=== PATIENT | male | born 1980 | race Caucasian/White ===

== ENCOUNTER 2018-09-17 09:28 | Emergency (ER) | payer SELFPAY ==
--- NOTE | 2018-09-17 09:32 | NUR.NOTE ---
Nursing Note: pt developed yesterday with dental pain since then pain has increased 10/10 pt also has noted swelling on right side of face pain radiates to neck and eye. pt took antibiotics that a fried had sitting around yesterday for tooth however did not help hi symptoms pt does not know what the antibiotic was
[2018-09-17 09:35] VITALS: BP 129/79; PULSE 87; RESP 15; TEMP 37; O2SAT 98
--- NOTE | 2018-09-17 09:50 | W.ED.GENAD ---
Discharge Plan Disposition Patient Disposition: HOME Condition: Stable Discharge Details Chief Complaint: DentalOral Clinical Impression: Dental infection Primary Care Provider: None,None ED Provider: Talat Joya Home Meds and New Rx's Prescriptions: New amoxicillin-pot clavulanate [Augmentin] 875-125 mg tablet 1 tab PO Q12H Qty: 14 RF: 0 Discharge Instructions Instructions: Dental Abscess (ED) Additional Instructions: Please take antibiotic for the full 7 days and until all tablets are gone. For pain control you may use 600 of ibuprofen along with 1000 mg of acetaminophen every 6 hours. You should follow-up with a dental provider preferably within the next 1 to 2 weeks for definitive care of your dental infection. Return to the emergency department for any new or significant worsening of symptoms. Referrals: [facility] [Provider Group] Discharge Data Discharge Date/Time-TO BE ENTERED AT DEPARTURE: 09/17/18 11:28 Medical Decision Making Patient presenting to the emergency department for chief complaint of dental pain and facial swelling. Patient states that he has had dental abscesses before and this feels similar. He states very poor dentition and multiple fractured teeth and removed teeth from infection. Patient reports yesterday he started having significant increase in pain and discomfort to the right lower jaw and over the past 24 hours as noted swelling to his face. Patient denies any fever chills, difficulty breathing or swallowing. Physical exam shows significant tooth loss to teeth #27-28 with surrounding erythema and edema but no palpable fluctuance. Patient has no signs of Gene's angina, peritonsillar retropharyngeal abscess, or airway obstruction. Exam is otherwise unremarkable except for tenderness to the left lower jaw. Review of vital signs shows completely normal vital signs and the patient is afebrile non-tachycardic non-hypotensive. Plan to place patient on antibiotics and patient was started on Augmentin. Did discuss risk versus benefit of dental block for an inferior alveolar block and patient after discussion of risks versus benefit gave verbal consent for this procedure. 0.25% of Marcaine was injected and patient tolerated procedure well. Patient had appropriate anesthetic relief from this. Patient was observed and had no side effect. Patient placed upon Augmentin for 7-day course. Return precautions discussed. After discussion of diagnosis and plan of care patient has no further needs, questions, or concerns and states clear understanding to return to the emergency department for any worsening symptoms. HPI General Mode of arrival: ambulatory. Date/Time Provider Initiated Documentation: 09/17/18 09:29. Limitations to Documentation: no limitations. Information obtained by: patient. History of Present Illness 37 year old M presents to the emergency department with the chief complaint of Dental pain/ swelling, described as severe and similar to prior episodes, with intensity rated at 10. Quality is described as sharp, and is localized to the mouth (right lower jaw). Patient started experiencing this day(s) (1) and it has been constant. No relieving factors improve symptom(s), Patient notes no other symptoms.. Patient did receive the following treatments prior to arrival, NSAID Related Data Home Medications Medication Instructions Recorded Confirmed amoxicillin-pot clavulanate 1 tab PO Q12H #14 tab 09/17/18 [Augmentin] Previous Rx's Medication Instructions Recorded amoxicillin-pot clavulanate 1 tab PO Q12H #14 tab 09/17/18 [Augmentin] Allergies Allergy/AdvReac Type Severity Reaction Status Date / Time No Known Allergies Allergy Unverified 09/17/18 09:37 General Stated Complaint: DentalOral JESSE: 3 Review of Systems Constitutional Denies chills and Denies fever(s) ENT Reports as per HPI, Denies change in voice, Reports dental pain, Denies dysphagia, Denies throat swelling and Denies tongue swelling Cardiovascular Denies chest pain and Denies dyspnea Respiratory Denies dyspnea, Denies stridor and Denies wheezing Gastrointestinal Denies abdominal pain, Denies dysphagia, Denies nausea and Denies vomiting Integumentary/Breasts Denies rash Allergic/Immunologic Denies throat swelling, Denies tongue swelling and Denies wheezing [facility] Social History Smoking/Tobacco Use Status: Current every day Tobacco Type: cigarettes Alcohol Intake: current Alcohol Intake frequency: 0-2 drinks per day Drug use: Occasionally Substance use type: marijuana and heroin Do you feel safe at home: Yes Do you feel safe in your relationship?: Yes Exam Const General: cooperative Orientation: alert, awake and oriented x3 Limitations: mental status not altered HENMT Head: normal to inspection, normocephalic and atraumatic Ears: hearing grossly normal bilaterally, normal mastoids bilaterally and no periauricular adenopathy General nose exam: external nose normal Mouth: oropharynx normal, no drooling, no muffled voice, normal tongue and no trismus Teeth and gingiva: abnormal tooth or associated gingiva right tender (teeth #27-28), with associated gingival edema (teeth #27-28) and dentin fractured (teeth #27-28); without associated gingival fluctuance, caries, poor dentition and other Throat: posterior oropharynx normal, tonsils normal and uvula midline Eyes General: appearance normal, both eyes and all related structures Pupils: PERRL Neck Neck: normal visual inspection, full ROM, no lymphadenopathy, no meningeal signs, trachea midline, supple, no anterior neck swelling and no midline deformity Resp Effort & Inspection: normal respiratory effort and able to speak in complete sentences Course Vital Signs Temperature 37 C 09/17/18 09:35 Pulse 87 09/17/18 09:35 Respiratory Rate 15 09/17/18 09:35 Blood Pressure 129/79 09/17/18 09:35 Pulse Oximetry 98 09/17/18 09:35 Temperature 37 C 09/17/18 09:35 Temperature Source Skin 09/17/18 09:35 Pulse 87 09/17/18 09:35 Respiratory Rate 15 09/17/18 09:35 Respiratory Effort 09/17/18 09:38 Blood Pressure 129/79 09/17/18 09:35 Blood Pressure Position Sitting 09/17/18 09:35 Pulse Oximetry 98 09/17/18 09:35 Oxygen Delivery Method Room Air 09/17/18 09:35 Oxygen Flow Rate 0 09/17/18 09:35 Pain Level 10 09/17/18 09:35
[2018-09-17] MEDS: Bupivacaine 0.25% Pres-Free 10 ML VIAL IJ (10:34)
[2018-09-17] MEDS: Amoxicillin 875/Clav. 125 TAB PO (10:34)
[2018-09-17 11:15] VITALS: BP 129/79; PULSE 87; RESP 15; TEMP 37; O2SAT 98
== END 2018-09-17 11:28 | disposition home or self-care (01) ==
PROVIDERS: Emergency Provider Nurse Practitioner Family
DX: R68.84 Jaw pain (principal); K04.7 Periapical abscess without sinus; R22.0 Localized swelling, mass and lump, head
CPT/HCPCS: 64402

== ENCOUNTER 2020-06-09 23:27 | Emergency (ER) | payer MEDICAID, SELFPAY ==
--- NOTE | 2020-06-09 23:30 | DI.RAD_ITS ---
Exam(s) XR KNEE LT 3V AP,LAT,ARUN EXAM: XR KNEE LT 3V AP,LAT,ARUN CLINICAL HISTORY: pain at lateral tibial plateau and inferior patell TECHNIQUE: COMPARISON: No exams were available for comparison FINDINGS: Three views were obtained. There is a probable small knee joint effusion. There is no evidence of a cute fracture or dislocation. Note is made of enthesophyte at the quadriceps attachment on the garcia la. IMPRESSION: RADIATION DOSE DELIVERED: Total DLP
[2020-06-09 23:33] VITALS: BP 127/107; PULSE 113; RESP 22; TEMP 36.4; O2SAT 97
--- NOTE | 2020-06-09 23:33 | ED.GENADUL_ITS ---
Discharge Plan Disposition Patient Disposition: HOME Condition: Good Discharge Details Clinical Impression: Acute pain of left knee Primary Care Provider: None,None ED Provider: Giorgio Healy Home Meds and New Rx's Prescriptions: Continued amoxicillin-pot clavulanate [Augmentin] 875-125 mg tablet 1 tab PO Q12H Qty: 14 RF: 0 methadone 40 mg Tablet,Soluble 80 mg PO DAILY RF: 0 sertraline 25 mg Tablet 30 mg PO DAILY RF: 0 Discharge Instructions Instructions: Knee Pain (ED) Additional Instructions: At this time your x-ray shows no evidence of fracture. I suspect there is injury to both the ligaments in the bursa fluid sac that goes around your knee. Please keep your knee Tino wrap, use ice Tylenol and Motrin for pain. Please remain nonweightbearing for the next week, and use your crutches. You can then gradually begin bearing weight on the affected joint if tolerable. If you do not have improvement of your symptoms after the next 1 to 2 weeks you may require further or alternative imaging of your knee. If you notice any worsening of your symptoms, or any new symptoms such as vomiting, diarrhea, fever, chills, shortness of breath, chest pain, numbness, weakness, or fainting , please return immediately to the emergency department for reevaluation. Please follow up with your primary care provider as soon as possible for reassessment and reevaluation. As always, it was a pleasure participating in your medical care today. 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 Patient states that 5 days ago he stepped into a hole, but he denies twisting his knee or hitting his knee at that time. Ever since then he has had pain over his inferior patella and over the lateral aspect of the tibial plateau. It is worse when he bends the knee and is down on his knees. It is worse at the end of the day after full day of use. He has been taking Tylenol and Motrin and this does not improve his symptoms. He denies any other trauma, fever, chills, or other complaints. Physical exam demonstrates reproducible tenderness over the inferior aspect of the patella and the lateral tibial plateau albeit mild. Pain is present with varus stressing, as well as lateral pain with Ingrid's test. No redness or warmth to suggest infection. Distal pulses sensation and capillary refill are intact and unremarkable. No laxity for anterior or posterior drawer testing. Symptoms are likely secondary to meniscal or lateral collateral ligament injury. Doubt tibial plateau fracture as the patient is able to ambulate well, has been doing so for the last 5 days. Will get x-ray to rule out acute fracture though, although I suspect this to be unlikely, monitor closely and reassess. 12:38 AM X-ray results have returned from [facility], no evidence of acute fracture. There is a small suprapatellar joint fluid that is noted. Suspect ligamentous injury and bursal irritation secondary to his mechanism. Symptoms are inconsistent with significant patellar fracture or tibial plateau fracture. Will recommend crutches for the next 1 to 2 weeks, rest, ice and NSAIDs. If the patient does not have improvement he may require further radiographic imaging. Discussed red flags for which to return. I have extensively reviewed the treatment plan and discharge instructions with the patient. I have addressed all patient concerns at this time. The patient was made aware of what symptoms to monitor for that would warrant a return to the emergency department. Discussed the plan with the patient, they demonstrate verbal understanding and agreement with our assessment and plan at this time. The documentation in this chart was dictated using [employer] dictation software. Please excuse any dictation errors. FINDINGS: Bones/joints: Small suprapatellar joint fluid. Enthesophyte noted at the insertion of the quadriceps tendon at the superior patellar pole. Soft tissues: Normal. IMPRESSION: 1. Small suprapatellar joint fluid. 2. Enthesophyte noted at the insertion of the quadriceps tendon at the superior patellar pole. Thank you for allowing us to participate in the care of your patient. Dictated and Authenticated by: Krish Strong MD 06/10/2020 12:34 AM Eastern Time ([place] & [place]) HPI General Date/Time Provider Initiated Documentation: 06/09/20 23:30 . 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 Patient states that 5 days ago he stepped into a hole, but he denies twisting his knee or hitting his knee at that time. Ever since then he has had pain over his inferior patella and over the lateral aspect of the tibial plateau. It is worse when he bends the knee and is down on his knees. It is worse at the end of the day after full day of use. He has been taking Tylenol and Motrin and this does not improve his symptoms. He denies any other trauma, fever, chills, or other complaints. Related Data Home Medications Medication Instructions Recorded Confirmed amoxicillin-pot clavulanate 1 tab PO Q12H #14 tab 09/17/18 [Augmentin] methadone 80 mg PO DAILY 06/09/20 06/09/20 sertraline 30 mg PO DAILY 06/09/20 06/09/20 Previous Rx's Medication Instructions Recorded amoxicillin-pot clavulanate 1 tab PO Q12H #14 tab 09/17/18 [Augmentin] Allergies Allergy/AdvReac Type Severity Reaction Status Date / Time No Known Allergies Allergy Unverified 09/17/18 09:37 General JESSE: 3 Review of Systems All systems reviewed & are unremarkable except as noted in HPI and below PFSH Social History Smoking/Tobacco Use Status: Current every day Tobacco Type: cigarettes Smoking risk assessment performed?: Yes Alcohol Intake: current Alcohol Intake frequency: 0-2 drinks per day Alcohol type: beer Drug use: Daily Substance use type: marijuana Do you feel safe at home: Yes Do you feel safe in your relationship?: Yes Exam Narrative Exam Narrative: 1.Const: Well-nourished, Well-developed, appearing stated age 2.Eyes: PERRL, no conjunctival injection, and symmetrical lids. 3.ENT: Atraumatic external nose and ears. Moist MM. Neck: Symmetric, trachea midline, No thyromegaly. 4.CVS: +S1/S2, No murmurs or gallops. Peripheral pulses 2+ and equal in all extremities. Brisk capillary refill in all extremities. 5.RESP: Unlabored respiratory effort. Clear to auscultation bilaterally. No wheezes rales or rhonchi 6.GI: Soft, Nontender/Nondistended, No hepatosplenomegaly. No guarding or rebound. 7.MSK: Normocephalic/Atraumatic, Extremities w/o deformity. Left knee: The knee is stable to varus, valgus, and anterior drawer stress. The patient does have some pain at the location of the lateral collateral ligaments with varus stressing. No deformity. Tenderness is present on palpation over the inferior aspect of the patella and the lateral aspect of the tibial plateau albeit mild. Ingrid test is positive for pain with external rotation and the pain is over the lateral aspect of the knee.. Patient is able to walk without difficulty but does have a mild limp. No edema or warmth to the joint to suggest infection. No redness.. No ttp to the fibular head. 8.Skin: Warm, Dry. 9.Neuro: survival specialist II-XII grossly intact. Sensation grossly intact, no focal neurolo gic deficits. 10.Psych: (AAO) x3. Appropriate mood and affect
--- NOTE | 2020-06-10 00:35 | DI.VRAD_ITS ---
PROCEDURE INFORMATION: Exam: XR Left Knee Exam date and time: 06/09/2020 12:05 AM Age: 39 years old Clinical indication: Other: Pain at lateral tibial plateau and inferior patella; Patient HX: PT uncooperative and could not follow instructions, limited study TECHNIQUE: Imaging protocol: XR Left knee. Views: 3 views. COMPARISON: No relevant prior studies available. FINDINGS: Bones/joints: Small suprapatellar joint fluid. Enthesophyte noted at the insertion of the quadriceps tendon at the superior patellar pole. Soft tissues: Normal. IMPRESSION: 1. Small suprapatellar joint fluid. 2. Enthesophyte noted at the insertion of the quadriceps tendon at the superior patellar pole. Dictated and Authenticated by: Krish Strong MD. Ordering:COLLETTE Alvares MD
== END 2020-06-10 00:49 | disposition home or self-care (01) ==
PROVIDERS: Emergency Provider Student in an Organized Health Care Education/Training Program
DX: S89.82XA Other specified injuries of left lower leg, initial encounter (principal); W18.42XA Slipping, tripping and stumbling without falling due to stepping into hole or opening, initial encounter; Y99.0 Civilian activity done for income or pay
CPT/HCPCS: 73562; 99283

== ENCOUNTER 2021-06-26 08:53 | Emergency (ER) | payer MEDICAID, SELFPAY ==
[2021-06-26 09:00] VITALS: BP 143/92; PULSE 79; RESP 16; TEMP 36.1; O2SAT 99
--- NOTE | 2021-06-26 09:08 | ED.GENADUL_ITS ---
Discharge Plan Disposition Patient Disposition: HOME Condition: Improving Discharge Details Clinical Impression: Finger infection Primary Care Provider: None,None ED Provider: Dereck Ge Home Meds and New Rx's Prescriptions: Continued sertraline 25 mg tablet 50 mg PO DAILY sulfamethoxazole-trimethoprim 800-160 mg tablet 1 tab PO BID Discharge Instructions Additional Instructions: Take antibiotics as prescribed previously until they are finished. Warm water soaks 1-2 times daily. May leave current dressing on until tomorrow morning. We will refer you to orthopedics as well as to establish primary care. As discussed, please call the office at [phone] for an appointment time. Return to the ER any acute concerns. Medical Decision Making 40-year-old male presents complaining of left ring finger infection after slamming it in a car door 2 weeks ago. He developed infection at the base of the nail and was seen at an urgent care where it was incised with an 18-gauge needle and he was placed on antibiotics which she has picked up this morning. He now requests recurrent drainage for buildup of pressure and swelling overnight. Patient does have an infection at the base of the left ring finger. He was anesthetized with digital block, incised with approximately 2 to 3 cc of purulent fluid expressed. He was wrapped with Xeroform and tube gauze. Will offer him follow-up with orthopedics for recheck. He is stable and appropriate for discharge this time. He will continue the antibiotics previously prescribed. HPI General Mode of arrival: ambulatory . Date/Time Provider Initiated Documentation: 06/26/21 08:54 . Limitations to Documentation: no limitations . History of Present Illness 40 year old M presents to the emergency department with the chief complaint of Finger infection, described as mild and similar to prior episodes, Quality is described as constant, and is localized to the left and upper extremity. Patient reports no radiation. Patient started experiencing this day(s) and it has been constant. No relieving factors improve symptom(s), No ex acerbating factors reported . Patient notes denies fever/chills. Patient did receive the following treatments prior to arrival, other (anced at urgent care, abx prescribed) Related Data Home Medications Medication Instructions Recorded Confirmed sertraline 25 mg tablet 50 mg PO DAILY 07/20/20 06/26/21 sulfamethoxazole 800 1 tab PO BID 06/26/21 06/26/21 mg-trimethoprim 160 mg tablet Allergies Allergy/AdvReac Type Severity Reaction Status Date / Time No Known Allergies Allergy Unverified 06/26/21 09:05 General Stated Complaint: Laceration JESSE: 4 Review of Systems Narrative: 6 ystems reviewed PFSH All Active Problems (Updated 06/26/21 @ 09:25 by Dereck Ge MD) Finger infection (Acute) Rheumatoid arthritis (Chronic) Anxiety (Chronic) Migraine headache (Chronic) Chronic asthma (Acute) Depressive disorder (Chronic) GERD (gastroesophageal reflux disease) (Chronic) Essential hypertension (Acute) Hyperlipidemia (Acute) Adjustment disorder (Chronic) ADHD (Acute) Blood in stool (Acute) Acute pain of left knee (Acute) Medical History History of blood clots Social History Smoking/Tobacco Use Status: Current every day Tobacco Type: cigarettes Smoking risk assessment performed?: Yes Alcohol Intake: current Alcohol Intake frequency: 0-2 drinks per day Alcohol type: beer Drug use: Daily Substance use type: marijuana Do you feel safe at home: Yes Do you feel safe in your relationship?: Yes Exam Narrative Exam Narrative: GEN: awake, alert, oriented 3. Pleasant, well groomed, interactive. HEAD: Normocephalic, atraumatic ENT: Mucous membranes moist, oropharynx unremarkable, External ear exam unremarkable EYES: PERRL, EOMI CHEST/RESP: No respiratory distress EXT: Full ROM, left ring finger with erythema and fluctuance at the base of the nail Neuro: Grossly normal neurologic exam, conversant, interactive. Psych: Speech fluent, thoughts congruent, affect normal Course Vital Signs Vital signs: Vital Signs Temperature 36.1 C L 06/26/21 09:00 Pulse 79 06/26/21 09:00 Respiratory Rate 16 06/26/21 09:00 Blood Pressure 143/92 H 06/26/21 09:00 Pulse Oximetry 99 06/26/21 09:00 Temperature 36.1 C L 06/26/21 09:00 Temperature Source Temporal Artery Scan 06/26/21 09:00 Pulse 79 06/26/21 09:00 Respiratory Rate 16 06/26/21 09:00 Respiratory Effort Non-Labored 06/26/21 09:03 Blood Pressure 143/92 H 06/26/21 09:00 Blood Pressure Position Sitting 06/26/21 09:00 Pulse Oximetry 99 06/26/21 09:00 Oxygen Delivery Method Room Air 06/26/21 09:00 Oxygen Flow Rate 0 06/26/21 09:00 Pain Level 7 06/26/21 09:00 Procedures Abscess I/D Site: Upper Extremity Side (if applicable): Left Local Anesthetic: Lidocaine 1% Amount of anesthesia used (mL): 2 Technique: Incised with #11 Blade Amount of fluid expressed (mL): 3 PAWSS Have you Been Recently Intoxicated or Drunk Within the Last 30 days?: No Have you Ever Experienced Previous Episodes of Alcohol Withdrawal?: No Have you ever Experienced Withdrawal Seizures?: No Have you ever Experienced Delirium Tremens(DT)s?: No Have you ever undergone Alcohol Rehabilitation Treatment (i.e, inpt ot outpatient treatment programs)?: No Have you ever Experienced Blackouts?: No Have you ever Combined Alcohol with other Downers within the last 90 days?: No Have you ever Combined Alcohol with any other Substance of Abuse during the last 90 days?: No Positive Blood Alcohol level on Presentation? [PCS.BAL]: No Evidence of Increased Autonomic Activity (i.e. HR>120, tremor, sweating, agitation, nausea)?: No Result: 0
--- NOTE | 2021-06-26 09:45 | NUR.NOTE ---
Dr. Ge has ordered referral to Ortho for left finger cellulitis with incision and drainage, he would like this to take place within a wk. The patient also needs to establish care with a primary care provider. requests have been faxed. CLB
--- NOTE | 2021-06-27 10:40 | CMACTNOTE_ITS ---
- If Service Date Differs Date of service: 06/27/21 Time of Service: 10:40 Care Management Activity Note Joaquim is seen in the ED for a finger infection. TERRY receives a request to assist Joaquim in establishing care with a PCP. A review of his chart reveals that he is already established at [facility]. TERRY contacts the [facility] and learns that GINO Velazquez, is Joaquim's PCP.
== END 2021-06-26 09:29 | disposition home or self-care (01) ==
PROVIDERS: Emergency Provider Emergency Medicine; PCP Nurse Practitioner Family
DX: L08.89 Other specified local infections of the skin and subcutaneous tissue (principal)
CPT/HCPCS: 10060

== ENCOUNTER 2022-11-12 00:04 | Emergency (ER) | payer MEDICAID, SELFPAY ==
--- NOTE | 2022-11-12 | DI.RAD_ITS ---
Exam(s) XR SHOULDER LT COMPLETE 2+V EXAM: XR SHOULDER LT COMPLETE 2+V CLINICAL HISTORY: Left shoulder pain. TECHNIQUE: 2D digital imaging was performed of the left shoulder. Five images were obtained. AP, G rashey, Y-view and axillary views were obtained. COMPARISON: No exams were available for comparison FINDINGS: BONES: No acute fracture is present. No bony destructive lesion is seen. JOINTS: No dislocation present. SOFT TISSUE: Normal. IMPRESSION: Unremarkable radiographs of the left shoulder. DATA REPOSITORY: RADIATION DOSE DELIVERED:
--- NOTE | 2022-11-12 00:07 | W.ED.GENAD ---
Discharge Plan Disposition Patient Disposition: Home Discharge Details Clinical Impression: Chronic left shoulder pain Primary Care Provider: Janet,Local ED Provider: Brenden Pitts Home Meds and New Rx's Prescriptions: New lidocaine [Lidoderm] 5 % adhesive patch,medicated 1 patch topical DAILY Qty: 15 0RF Rx Instructions: leave on most painful area for up to 12 hrs Continued sertraline 25 mg tablet 50 mg PO DAILY Discontinued sulfamethoxazole-trimethoprim 800-160 mg tablet 1 tab PO BID Patient Comments: not taking Discharge Instructions Instructions: Shoulder Pain (ED) Additional Instructions: You were seen in the emergency department for your shoulder pain. Your x-ray showed no sign of any fractures nor dislocations. A referral has been placed for you to see a primary care provider. A referral has also been placed for physical therapy. Please return to the emergency department, as we discussed, if you develop numbness or tingling in your left hand and any fevers or swelling in your left shoulder or if you have any new injuries. Patches for numbing medicines have been sent into your pharmacy. For your pain please take medications as follows: 1. Take acetaminophen (Tylenol), 1,000 mg (two 500 mg tabs) every 6 hours 2. Take ibuprofen (Advil), 400 mg every 6 hours. Stand Alone Forms: Physical Therapy Referral HPI General Date/Time Provider Initiated Documentation: 11/12/22 00:07. HPI Narrative: HPI This is an ambidextrous 41-year-old male arriving via private vehicle to the emergency department in the setting of a left shoulder pain. Patient reports that he works in construction. He reports that he remotely sustained a brachial plexus injury on his left upper extremity from a fall at work. He says that 4 months ago he was on top of a ladder and that he fell off landing on his left shoulder. He says that he has subsequently had left shoulder pain. He has been taking [id number] ibuprofen and delaying getting his shoulder evaluated as he does not currently have a primary care provider. He has noticed some decreased strength at work in his left upper extremity. He has not taken any recent falls. He denies numbness and tingling in his left hand. He has not had any fevers. He denies IV drugs. No nausea vomiting chest pain or shortness of breath. Exam General: Well-appearing in no acute distress speaking in complete sentences. Head: Normocephalic, atraumatic. Eye: Extraocular eye movements intact. No conjunctival injection. No scleral icterus. Ear, nose, mouth, throat: Grossly normal inspection. Normal voice, handling secretions normally. Neck: Trachea midline. Cardiovascular: Well-perfused distal extremities. Regular rate and rhythm. Respiratory: Nonlabored respiration. Clear lungs bilaterally. Gastrointestinal: Nondistended abdomen. Musculoskeletal: Left shoulder appears normal on inspection with no asymmetries. No lacerations nor ecchymoses. Patient is able to touch his left hand to his contralateral right shoulder. Left hand warm and well-perfused with 2+ left radial pulse. Sensation motor function intact in the left hand across the radian, medial, and ulnar nerve distributions. Cap refill less than 2 seconds in left fingertips. Patient is able to abduct his left shoulder to approximately 90 degrees. He is able to flex his left shoulder to approximately 80 degrees. He is able to extend his left shoulder to approximately 15 degrees. Patient has no signs of muscle wasting in his left upper extremity. Skin: Normal for age and race, grossly normal temperature and turgor. No acute rash. Neurologic: Alert and appropriate, no apparent acute deficits. Psychiatric: Mood and manner are appropriate. Grooming and personal hygiene are appropriate. MDM This is an overall very well-appearing normothermic and mildly tachycardic 41-year-old ambidextrous male with chronic left shoulder pain concerning for the possibility of rotator cuff strain versus brachial plexus injury versus adhesive capsulitis. No significant swelling nor fevers nor significant limitations to range of motion to suggest septic joint and not an IV drug user. No rash to suggest Lyme arthritis. No pain out of proportion to suggest necrotizing soft tissue infection. Patient is able to touch his left hand to his contralateral shoulder so my suspicion for dislocation is exceedingly low. Nonetheless we will obtain plain films. No clavicular nor proximal humerus tenderness to suggest fracture. Patient has no history of malignancy so doubt pathological fracture. No nausea nor vomiting so my suspicion is low for referred pain. Clear equal breath sounds so doubt pneumothorax. No chest pain to suggest ACS. No history of cervical rib and no numbness nor tingling nor color changes reported in left hand so doubt thoracic outlet syndrome. Patient does have a history of rheumatoid arthritis however, given that his pain was preceded by trauma, my suspicion for a flare of his rheumatoid arthritis is exceedingly low so I do not feel that patient will benefit from steroids. I suspect the patient's tachycardia is secondary to pain for which he will receive treatment with acetaminophen and a Lidoderm patch as he has taken ibuprofen prior to arrival. I have also asked health equal opportunity assistant Sosa to have the patient seen within the week by a primary care provider as he does not have a primary care provider. I have also ordered for the patient to undergo physical therapy. If his symptoms do not improve with conservative management he may benefit from an MRI however I will defer this decision to his primary care provider. 12:40 AM Repeat heart rate normalized in the emergency department. No obvious acute osseous abnormalities on my preliminary interpretation of the patient's complete left shoulder film. 2:15 AM Reassuring negative complete left shoulder plain films per virtual radiology. We will proceed with empiric trial of expectant outpatient management. Patient understood his return indications. Chronic conditions affecting the care of the patient: Depression rheumatoid arthritis History obtained from an outside historian: N/A External record review: No [facility] [place] EMR records Medications: Acetaminophen Lidoderm Social determinants of health affecting disposition: N/A Management discussed with: N/A Treatment/interventions considered: N/A Response to therapies provided: N/A Related Data Home Medications Medication Instructions Recorded Confirmed sertraline 25 mg tablet 50 mg PO DAILY 07/20/20 06/26/21 lidocaine 5 % topical patch 1 patch topical DAILY #15 ea 11/12/22 (Lidoderm) Previous Rx's Medication Instructions Recorded lidocaine 5 % topical patch 1 patch topical DAILY #15 ea 11/12/22 (Lidoderm) Allergies Allergy/AdvReac Type Severity Reaction Status Date / Time No Known Allergies Allergy Unverified 11/12/22 00:12 General JESSE: 4 PFSH All Active Problems (Updated 11/12/22 @ 00:26 by Brenden Pitts MD) Chronic left shoulder pain (Acute) Rheumatoid arthritis (Chronic) Anxiety (Chronic) Migraine headache (Chronic) Chronic asthma (Acute) Depressive disorder (Chronic) GERD (gastroesophageal reflux disease) (Chronic) Essential hypertension (Acute) Hyperlipidemia (Acute) Adjustment disorder (Chronic) ADHD (Acute) Blood in stool (Acute) Acute pain of left knee (Acute) Medical History History of blood clots Social History Smoking/Tobacco Use Status: Current every day Tobacco Type: cigarettes Smoking risk assessment performed?: Yes Alcohol Intake: current Alcohol Intake frequency: 0-2 drinks per day Alcohol type: beer Drug use: Daily Substance use type: marijuana Details: pt states that he is clean from drugs other than smoking weed for 23 months Do you feel safe at home: Yes Do you feel safe in your relationship?: Yes
[2022-11-12 00:09] VITALS: BP 148/83; PULSE 108; RESP 18; TEMP 37.6; O2SAT 98
--- NOTE | 2022-11-12 00:24 | NUR.NOTE ---
Referral to Care Management to f/u 1-2 weeks for left shoulder pain and establish pcp.Nursing Note:
[2022-11-12 00:40] VITALS: PULSE 96
[2022-11-12] MEDS: Acetaminophen 500 MG TAB 1000 MG PO (00:44)
[2022-11-12] MEDS: Lidocaine 5% Patch 1 PATCH TP (00:44)
--- NOTE | 2022-11-12 00:44 | DI.VRAD_ITS ---
PROCEDURE INFORMATION: Exam: XR Left Shoulder Exam date and time: 11/12/2022 12:30 AM Age: 41 years old Clinical indication: Injury or trauma; Fall; Work related; Blunt trauma (contusions or hematomas); Shoulder; Left TECHNIQUE: Imaging protocol: Radiologic exam of the left shoulder. Views: 2 or more views. COMPARISON: No relevant prior studies available. FINDINGS: Bones/joints: Normal. Soft tissues: Normal. IMPRESSION: No acute findings. Dictated and Authenticated by: Bull Waller MD. Ordering:ANASTACIA Wilcox MD
== END 2022-11-12 00:50 | disposition home or self-care (01) ==
PROVIDERS: Emergency Provider Emergency Medicine
DX: M25.512 Pain in left shoulder (principal); G89.29 Other chronic pain; F17.200 Nicotine dependence, unspecified, uncomplicated; F32.A Depression, unspecified; M06.9 Rheumatoid arthritis, unspecified; Z91.81 History of falling
CPT/HCPCS: 99283; 73030

== ENCOUNTER 2023-09-10 19:10 | Emergency (ER) | payer MEDICAID, SELFPAY ==
[2023-09-10 19:16] VITALS: BP 140/80; PULSE 92; RESP 16; TEMP 37.2; O2SAT 99
--- NOTE | 2023-09-10 20:19 | ED.GENADUL_ITS ---
Discharge Plan Disposition Patient Disposition: Home Condition: Stable Discharge Details Clinical Impression: Cellulitis of right index finger, Cellulitis of right axilla Primary Care Provider: Unknown,Unknown ED Provider: Cj Valdez Home Meds and New Rx's Prescriptions: New sulfamethoxazole-trimethoprim [Bactrim DS] 800-160 mg tablet 1 tab PO BID Qty: 14 0RF amoxicillin-pot clavulanate 875-125 mg tablet 1 tab PO BID Qty: 14 0RF Discharge Instructions Additional Instructions: Take the antibiotics as prescribed If not better in a week or improving in a week follow-up with your primary care provider or express care If you feel more ill or develop new symptoms such as high fevers or severe worsening pain return to the emergency department for reevaluation HPI General Mode of arrival: ambulatory . Date/Time Provider Initiated Documentation: 09/10/23 19:13 . Limitations to Documentation: no limitations . Information obtained by: patient . History of Present Illness 42 year old M presents to the emergency department with the chief complaint of right index finger redness, described as moderate, Patient started experiencing this day(s) (3) and it has been constant. No relieving factors improve symptom(s), No exacerbating factors reported . Patient notes denies fever/chills. Related Data Home Medications ?Medication ?Instructions ?Recorded ?Confirmed amoxicillin 875 mg-potassium 1 tab PO BID #14 tabs 09/10/23 clavulanate 125 mg tablet sulfamethoxazole 800 1 tab PO BID #14 tabs 09/10/23 mg-trimethoprim 160 mg tablet (Bactrim DS) Previous Rx's ?Medication ?Instructions ?Recorded amoxicillin 875 mg-potassium 1 tab PO BID #14 tabs 09/10/23 clavulanate 125 mg tablet sulfamethoxazole 800 1 tab PO BID #14 tabs 09/10/23 mg-trimethoprim 160 mg tablet (Bactrim DS) Allergies Allergy/AdvReac Type Severity Reaction Status Date / Time No Known Allergies Allergy Unverified 09/10/23 19:22 General Stated Complaint: RashLesion JESSE: 3 Review of Systems All systems reviewed & are unremarkable except as noted in HPI and below Constitutional Constitutional: Denies chills, Denies fever(s) and Denies weakness Cardiovascular Cardiovascular: Denies chest pain and Denies dyspnea Respiratory Respiratory: Denies cough and Denies dyspnea Gastrointestinal Gastrointestinal: Denies abdominal pain, Denies nausea and Denies vomiting Integumentary/Breasts Skin/Breast: Reports rash Neurologic Neurologic: Denies weakness Exam Const General: no acute distress Orientation: alert HENMT Head: normal to inspection Ears: external ears normal General nose exam: external nose normal Mouth: moist mucous membranes Eyes General: appearance normal, both eyes and all related structures Neck Neck: normal visual inspection Resp Effort & Inspection: normal respiratory effort and able to speak in complete sentences Cardio Rate: regular rate Skin General skin exam: elasticity normal Neuro General: patient alert and patient oriented x3 Extrem General: full ROM and capillary refill normal Psych Mental Status: mental status grossly normal Course Vital Signs Vital signs: Vital Signs Temperature 37.2 C 09/10/23 19:16 Pulse 92 H 09/10/23 19:16 Respiratory Rate 16 09/10/23 19:16 Blood Pressure 140/80 09/10/23 19:16 Pulse Oximetry 99 09/10/23 19:16 Temperature 37.2 C 09/10/23 19:16 Temperature Source Temporal Artery Scan 09/10/23 19:16 Pulse 92 H 09/10/23 19:16 Respiratory Rate 16 09/10/23 19:16 Respiratory Effort Normal 09/10/23 19:24 Blood Pressure 140/80 09/10/23 19:16 Pulse Oximetry 99 09/10/23 19:16 Pain Level 9 09/10/23 19:16 Medical Decision Making 42-year-old male with a history of substance abuse who has not used in 3 weeks per patient comes in with right index finger redness for 3 days. He says he lanced it and got white pus out of it. He denies any fevers or chills. He also noted a red area in his right armpit today. He appears well on exam speaking clearly in no distress. His right distal index finger is red and swollen, he has no pain over the flexor surface and its only the distal finger less swollen no pain with rest of the finger. Full range of motion and range of motion. There is no visible pockets of pus. His right armpit he has a 2 x 3 cm mild erythema without fluctuance in the middle of the right armpit. It is not tender and he has no crepitus. Unclear if this is cellulitis versus just inflammation as he says he was working outside all day today. I told him that there does not feel to be a abscess currently in the armpit but there is a chance he may develop 1. Family to start him on Augmentin and Bactrim for the finger and armpit cellulitis. He is stable for discharge advised to follow-up with his PCP and return precautions given. He has no findings on exam to suggest flexor tenosynovitis and he has no murmurs and no lesions consistent with endocarditis. Differential Diagnosis Differential Diagnosis: Cellulitis, paronychia Quality:SDOH Health Related Social Needs: No Data to Display PFSH All Active Problems (Updated 09/10/23 @ 20:24 by Cj Valdez MD) Cellulitis of right axilla (Acute) Cellulitis of right index finger (Acute) No-show for appointment (Acute) Rheumatoid arthritis (Chronic) Anxiety (Chronic) Migraine headache (Chronic) Chronic asthma (Acute) Depressive disorder (Chronic) GERD (gastroesophageal reflux disease) (Chronic) Essential hypertension (Acute) Hyperlipidemia (Acute) Adjustment disorder (Chronic) ADHD (Acute) Blood in stool (Acute) Acute pain of left knee (Acute) Medical History History of blood clots Social History Smoking/Tobacco Use Status: Current every day Tobacco Type: cigarettes Smoking risk assessment performed?: Yes Alcohol Intake: current Alcohol Intake frequency: 0-2 drinks per day Alcohol type: beer Drug use: Daily Substance use type: marijuana, tranquilizers, opiates and IV drugs Details: pt states that he is clean from drugs other than smoking weed for 3 weekss Do you feel safe at home: Yes Do you feel safe in your relationship?: Yes
[2023-09-10] MEDS: Sulfameth/Trimeth DS TAB 1 TAB PO (20:32)
[2023-09-10] MEDS: Acetaminophen 500 MG TAB 1000 MG PO (20:32)
[2023-09-10] MEDS: Amoxicillin 875/Clav. 125 TAB PO (20:32)
[2023-09-10 20:33] VITALS: BP 132/72; PULSE 80; RESP 14; O2SAT 99
== END 2023-09-10 20:36 | disposition home or self-care (01) ==
PROVIDERS: Emergency Provider Emergency Medicine
DX: L03.011 Cellulitis of right finger (principal); L03.111 Cellulitis of right axilla; M06.9 Rheumatoid arthritis, unspecified; I10 Essential (primary) hypertension; E78.5 Hyperlipidemia, unspecified; F17.210 Nicotine dependence, cigarettes, uncomplicated
CPT/HCPCS: 99283

== ENCOUNTER 2023-11-30 12:01 | Outpatient (CLI) | payer MEDICAID, SELFPAY ==
--- NOTE | 2023-11-30 | DI.RAD_ITS ---
Exam(s) XR SHOULDER RT COMPLETE 2+V EXAM: XR SHOULDER RT COMPLETE 2+V CLINICAL HISTORY: M25.511 Pain RT shoulder. TECHNIQUE: 2D digital imaging was performed of the right shoulder. Five images were obtained. AP, Grashey, Y-view and axillary views were obtained. COMPARISON: There are no priors for comparison. FINDINGS: BONES: No acute fracture is present. No bony destructive lesion is seen. JOINTS: Mild degenerative changes are seen at the acromioclavicular joint. The glenohumeral joint is well maintained. SOFT TISSUE: Normal. IMPRESSION: Mild degenerative changes of the acromioclavicular joint. DATA REPOSITORY: RADIATION DOSE DELIVERED:
== END 2023-11-30 12:21 ==
LOC: DI 12:01
PROVIDERS: Visit Provider Physician Assistant Medical
DX: M19.011 Primary osteoarthritis, right shoulder (principal)
CPT/HCPCS: 73030

== ENCOUNTER 2024-05-05 01:15 | Outpatient (CLI) | payer OTHER, SELFPAY ==
--- NOTE | 2024-05-05 08:20 | DI.MRI_ITS ---
Exam(s) MR LOWER JOINT LT WO EXAM: MR LOWER JOINT LT WO CLINICAL HISTORY: Unilateral primary OA, M17.12; sprain of super tibiofibial jt and ligament,. TECHNIQUE: Multiplanar multisequence MRI was performed. COMPARISON: CR,XR XR KNEE LT 3V AP,LAT,ARUN from 06/10/2020 FINDINGS: BONES: There is no fracture or contusion pattern. JOINTS: There is mild thinning of the articular cartilage at the superior aspect of the patella femor al joint. Mild subchondral edema is also noted. There is also a cartilage defect overlying the late ral femoral condyle. The articular cartilage is otherwise well maintained. There is a small joint e ffusion. TENDONS: Extensor mechanism: Unremarkable. Medial retinaculum: Unremarkable. Lateral retinaculum: Unremarkable. Popliteus: Unremarkable. MUSCLES: Unremarkable. MENISCI: There is degenerative signal seen in the medial meniscus. No evidence of a tear. The later al meniscus is unremarkable. SOFT TISSUES: There are varices seen in the soft tissues, particularly laterally adjacent to the late ral collateral ligament. No evidence of a suspicious soft tissue mass. LIGAMENTS: Anterior Cruciate: The anterior cruciate ligament is thickened and heterogeneous in signal. There ar e some intact fibers present. Posterior Cruciate: Unremarkable. Medial Collateral:Unremarkable. Lateral Collateral: Unremarkable. OTHER: IMPRESSION: 1. The lateral collateral ligament complex is intact and unremarkable. 2. Degeneration in the medial meniscus. No evidence of a meniscal tear. 3. Heterogeneous and thickened anterior cruciate ligament which may represent mucoid degeneration. P artial tear cannot be excluded. 4. Small joint effusion. 5. Chondromalacia is seen in the patella. 6. Variceal veins seen around the knee particularly laterally. DATA REPOSITORY:
== END 2024-05-05 01:35 ==
LOC: DI 01:15
PROVIDERS: Visit Provider Nurse Practitioner Adult Health
DX: M17.12 Unilateral primary osteoarthritis, left knee (principal)
CPT/HCPCS: 73721